=== PATIENT | female | born 1980 | race Caucasian/White ===

== ENCOUNTER 2016-07-29 19:24 | Emergency (ER) | payer OTHER ==
[~2016-07-29] VITALS: Ht 170.2 cm; Wt 52.2 kg
[2016-07-29 20:34] LABS: *BILIRUBIN,URIN NEGATIVE (NEGATIVE); *BLOOD, URINE 1+ (NEGATIVE); *CLARITY,URINE CLEAR (CLEAR); *COLOR,URINE YELLOW (YELLOW); *KETONES,URINE NEGATIVE (NEGATIVE); *PROTEIN,URINE NEGATIVE (NEGATIVE); *UROBILINOGEN,URINE 0.2 E.U./dl (NORMAL); LEUKOCYTE ESTERASE ,URINE 3+ (NEGATIVE); NITRITE, URINE NEGATIVE (NEGATIVE); UGLUCOSE NEGATIVE (NEGATIVE)
[2016-07-29 20:38] LABS: *URINE HCG, QUAL NEGATIVE (NEGATIVE)
[2016-07-29 20:40] LABS: BACTERIA,URINE MANY /HPF (NONE SEEN); RBC,URINE 0-3 /HPF (0-3); SQUAMOUS EPITHELIAL CELL,UR MANY /HPF (NONE SEEN)
--- NOTE | 2016-07-29 21:11 | NUR ---
Patient discharged to home in stable conditon. Written and verbal after care instructions given. Patient verbalizes understanding of instructions.
== END 2016-07-29 21:12 | disposition home or self-care (01) ==
LOC: ER 19:33
DX: B37.3 Candidiasis of vulva and vagina (principal)
CPT/HCPCS: 84703; 87086; A4663

== ENCOUNTER 2017-07-04 12:33 | Emergency (ER) | payer OTHER ==
[~2017-07-04] VITALS: Ht 170.2 cm; Wt 52.2 kg
[2017-07-04 12:58] LABS: *BILIRUBIN,URIN NEGATIVE (NEGATIVE); *BLOOD, URINE 2+ (NEGATIVE); *CLARITY,URINE CLEAR (CLEAR); *COLOR,URINE YELLOW (YELLOW); *KETONES,URINE NEGATIVE (NEGATIVE); *PROTEIN,URINE TRACE (NEGATIVE); *UROBILINOGEN,URINE 0.2 E.U./dl (NORMAL); LEUKOCYTE ESTERASE ,URINE NEGATIVE (NEGATIVE); NITRITE, URINE NEGATIVE (NEGATIVE); PH,URINE 7.5 (5.0-8.0); UGLUCOSE NEGATIVE (NEGATIVE)
[2017-07-04 13:05] LABS: *URINE HCG, QUAL NEGATIVE (NEGATIVE); BACTERIA,URINE NONE SEEN /HPF (NONE SEEN); RBC,URINE 20-50 /HPF (0-3); SQUAMOUS EPITHELIAL CELL,UR FEW /HPF (NONE SEEN); WBC,URINE 0-3 /HPF (0-3)
--- NOTE | 2017-07-04 13:37 | NUR ---
LABS DRAWN-SENT, PRESENTLY TYSHAWN AT THE BEDSIDE.
[2017-07-04 14:03] LABS: BASOPHILS # (AUTO) 0.1 K/uL (0.0-8.0); EOSINOPHILS # (AUTO) 0.1 K/uL (0.0-0.7); EOSINOPHILS % (AUTO) 0.8 % (0.0-7.0); HEMATOCRIT 30.9 % (31.2-41.9); HEMOGLOBIN 10.1 g/dL (10.9-14.3); LYMPHOCYTES # (AUTO) 2.5 K/uL (20.0-40.0); LYMPHOCYTES % (AUTO) 30.3 % (20.5-51.5); MEAN CORPUSCULAR HEMOGLOBIN 25.7 uug (24.7-32.8); MEAN CORPUSCULAR HGB CONC 33 g/dL (32.3-35.6); MEAN CORPUSCULAR VOLUME 78.7 fL (75.5-95.3); MONOCYTES # (AUTO) 0.7 K/uL (2.0-10.0); NEUTROPHILS # (AUTO) 4.9 K/uL (1.8-8.9); NEUTROPHILS % (AUTO) 59.9 % (38.5-71.5); PLATELET COUNT (AUTO) 389 K/uL (179-408); RED BLOOD CELL COUNT(AUTO) 3.93 MIL/uL (3.63-4.92); WHITE BLOOD COUNT (AUTO) 8.2 K/uL (3.8-11.8)
--- NOTE | 2017-07-04 14:05 | NUR ---
PELVIC ULTRASOUND DONE AT BEDSIDE, CHAPERONED BY ANASTACIO RN, REMAINED AT BEDSIDE OF PT. TOLERATED WELL.
[2017-07-04 14:21] LABS: CREATININE 0.6 mg/dL (0.6-1.3); POTASSIUM 4.2 mmol/L (3.5-5.1)
--- NOTE | 2017-07-04 15:24 | NUR ---
ASSISSTED MD WITH PELVIC EXAM
--- NOTE | 2017-07-04 15:25 | NUR ---
PELVIC EXAMS ABND SPECIMENS DONE, DR JENSEN AND ROSIE RN DID PELVIC.
[2017-07-04] MEDS ORDERED: AZITHROMYCIN 250 MG TABLET ONE (15:29)
[2017-07-04] MEDS ORDERED: CEFTRIAXONE 500 MG VIAL ONE (15:29)
[2017-07-04] MEDS ORDERED: CEFTRIAXONE 500 MG VIAL IM ONE (15:30)
[2017-07-04] MEDS ORDERED: LIDOCAINE HCL 1% 20 ML VIAL ONE (15:30)
[2017-07-04] MEDS ORDERED: AZITHROMYCIN 250 MG TABLET PO ONE (15:30)
--- NOTE | 2017-07-04 15:47 | NUR ---
MSE COMPLETED, ROCEFIN IM TO RT GLUTT. PT D/C'D HOME, ACI/RX X1, PT AMBULATED W/O DIFF, TOOK ALL BELONGINGS.
[2017-07-04 15:49] VITALS: BP 117/78
== END 2017-07-04 15:51 | disposition home or self-care (01) ==
LOC: ER 12:33
DX: N34.2 Other urethritis (principal); N83.209 Unspecified ovarian cyst, unspecified side; N89.8 Other specified noninflammatory disorders of vagina
CPT/HCPCS: 36415; 76856; 84703; 85025; 87210; A4663; J0696; J3490; Q0144